=== PATIENT | male | born 1960 | race Caucasian/White ===

== ENCOUNTER 2018-06-09 07:53 | Emergency (ER) | payer OTHER, SELFPAY ==
[2018-06-09 07:55] VITALS: BP 159/77; PULSE 65; RESP 12; TEMP 36.6; O2SAT 94; BMI 36.8
--- NOTE | 2018-06-09 08:08 | ED.VISSUMM ---
- ER Visit Summary Date of Service: 06/09/18 Chief Complaint: Back pain History of Present Illness: The patient is a 57 M presenting with back pain. He states he has a history of chronic back pain but this worsened this morning. He states he was at work but he does not recall anything specific that worsened his pain. He had no trauma. He has pain in the mid back. He has had lumbar back surgery in the past. He is treated with Dewy Rose and injections per pain management. He denies any weakness or numbness. Denies incontinence. Denies trauma. He states he has mild right-sided chest pain which started at the same time. Denies fever chills or other complaints. Physical Examination: Vitals are stable. Patient is afebrile. Alert no acute distress. HEENT exam is unremarkable. Neck is supple. Lungs are clear and equal bilaterally. Heart is regular rate and rhythm. Abdomen is soft nontender nondistended. Back: bilateral paraspinal thoracic muscle tenderness Extremities are unremarkable. Skin is warm and dry. No focal neurologic deficit. Remainder of exam is unremarkable. Emergency Department Course and Treatment: Patient given morphine, Zofran IV. EKG is atrial paced rate of 65. Chest x-ray shows no acute abnormality. CBC, chemistries unremarkable. Troponin is negative. D-dimer is normal. On reevaluation, patient is feeling improved. Delta troponin is negative. He continues to feel improved in the emergency department. He is advised to follow-up with his primary care physician. Advised return to ED for worsening complaints. Disposition: Discharge home Impression: Acute on chronic back pain This note was generated with [employer] dictation software. It may contain incorrect words, spelling, and punctuation that were not noted in review of the chart prior to signing ED Disposition - Plan for ED Patient: Chief Complaint: Back Referrals: Shaheen Costa III, MD [Primary Care Provider] -
[2018-06-09] MEDS: Ondansetron 4 MG/2 ML Vial IV (08:20)
[2018-06-09] MEDS: Morphine 4 MG/ML Syringe IV (08:20)
[2018-06-09] MEDS: Aspirin 81 MG TAB.CHEW 324 MG PO (08:20)
[2018-06-09 08:23] LABS: Absolute Neutrophil Count 4.5 X10^3/uL (2.0-7.7); Basophil# 0.04 X10^3/uL; Basophil% 0.6 % (0-1); Eosinophil# 0.31 X10^3/uL; Eosinophils% 4.3 % (0-5); Hematocrit 44.1 % (40-54); Hemoglobin 14.8 g/dl (13.0-16.5); Lymphocyte % 19.5 % (19-41); Mean Corp Hgb Conc 33.6 g/gl (32-36); Mean Corpuscular Volume 86.5 fL (80-94); Mean Platelet Vol. 7.9 fl (6.2-12.0); Monocyte# 0.95 X10^3/uL; Monocyte% 13.2 % (0-10); Neutrophil # 4.48 X10^3/uL (2.7-7.7); Neutrophil % 62.3 % (47-70); POSITIVE COUNT NO; POSITIVE DIFFERENTIAL NO; POSITIVE MORPHOLOGY NO; Platelet Count 269 K/mm3 (150-450); RBC Distribution Width CV 15.1 % (11.6-14.6); RBC Distribution Width SD 47.6 fl (35.1-43.9); White Blood Count 7.2 K/mm3 (4.4-11.0)
[2018-06-09 08:39] LABS: Anion Gap 4 (5-15); BUN 12 mg/dL (7-18); BUN/Creat Ratio 11.9 RATIO (10-20); Calcium,Total 8.6 mg/dL (8.5-10.1); Chloride 108 mmol/L (98-107); Creatinine, Serum 1.01 mg/dL (0.70-1.30); EST Glomerular Filtration Rate 81 mL/min (>60); Est Glom Filt Rate - Afr Amer 97 mL/min (>60); Estimated Creatinine Clearance 92.69 ml/min; Glucose 89 mg/dL (74-106); Potassium 4.4 mmol/L (3.5-5.1); Sodium Level 141 mmol/L (136-145)
[2018-06-09 08:42] LABS: D-Dimer Quantitative (DVT/PE) 0.28 FEU/ug/m (0.27-0.49)
[2018-06-09 09:06] VITALS: BP 148/81; PULSE 65; RESP 19; O2SAT 98
--- NOTE | 2018-06-09 12:05 | ED.DEP ---
ED Disposition - Plan for ED Patient: Chief Complaint: Back Instructions: ED Neck Back Pain General Referrals: Shaheen Costa III, MD [Primary Care Provider] -
[2018-06-09 12:13] VITALS: BP 154/81; PULSE 65; RESP 20; O2SAT 97
== END 2018-06-09 12:13 | disposition home or self-care (01) ==
LOC: ED 08:17
PROVIDERS: Emergency Provider Emergency Medicine; Family Provider Family Medicine; PCP Family Medicine
DX: M54.6 Pain in thoracic spine (principal); G89.29 Other chronic pain; Z79.891 Long term (current) use of opiate analgesic; Z79.82 Long term (current) use of aspirin
CPT/HCPCS: 71045; 80048; 84484; 85025; 85379; 93005; 96374; 96375; 99284; A4216; J2405